=== PATIENT | male | born 1950 | race Caucasian/White ===

== ENCOUNTER → 2017-03-05 | Outpatient (CLI) | payer MEDICARE ==
[~2017-03-05] MED LIST: ATEN1TAB4 PO; ATOR-2 PO; ATORVASTATIN CALCIUM; CANA300T PO; GABA600T2 PO; HYDR-3245 PO; INSU300I SQ; LANTUS; LOVASTATIN; MELO15TA24 PO; METF100010 PO; METFORMIN; NOVOLOG; OMEP20CA14 PO; REGADENOSON 0.4 MG/5 ML SYRINGE ONE; RIVA1TAB PO; RIVA20TA PO; TIZA2CAP PO; TRAM150C25 PO; TRILIPIX; ZOLIPDEM; [UNRECOGNIZED DRUG - OTHER]
== END | disposition home or self-care (01) ==
LOC: CFH 12:43
PROVIDERS: ATTEND Family Medicine
DX: I25.10 Atherosclerotic heart disease of native coronary artery without angina pectoris (principal); I70.8 Atherosclerosis of other arteries
CPT/HCPCS: 78452; 93017; A9502; J2785

== ENCOUNTER → 2018-06-07 | Outpatient (CLI) | payer MEDICARE, OTHER ==
[~2018-06-07] MED LIST changes: -REGADENOSON 0.4 MG/5 ML SYRINGE ONE
== END | disposition home or self-care (01) ==
LOC: CFH 10:12
PROVIDERS: ATTEND Surgery
DX: Z01.818 Encounter for other preprocedural examination (principal); E66.01 Morbid (severe) obesity due to excess calories
CPT/HCPCS: 74247

== ENCOUNTER 2018-12-19 12:02 | Outpatient (CLI) | payer MEDICARE, OTHER ==
[~2018-12-19 12:02] MED LIST changes: -GABA600T2 PO; +GABA600T7 PO
[2018-12-19] MEDS ORDERED: REGADENOSON 0.4 MG/5 ML SYRINGE ONE (12:12)
== END 2018-12-19 23:59 | disposition home or self-care (01) ==
LOC: RAD 12:02
PROVIDERS: ATTEND Internal Medicine Cardiovascular Disease
DX: Z02.9 Encounter for administrative examinations, unspecified (principal)
CPT/HCPCS: J2785

== ENCOUNTER 2018-12-23 15:32 | Outpatient (CLI) | payer MEDICARE, OTHER | END 2018-12-23 23:59 | disposition home or self-care (01) | LOC: CVU 15:32 | PROVIDERS: ATTEND Internal Medicine Cardiovascular Disease | DX: Z01.810 Encounter for preprocedural cardiovascular examination (principal); I10 Essential (primary) hypertension | CPT/HCPCS: 93306 ==